=== PATIENT | male | born 1960 | race Caucasian/White ===

== ENCOUNTER 2016-06-19 08:42 | Day surgery (SDC) | payer BC ==
[~2016-06-19 08:42] MED LIST: PROPOFOL 500 MG/50 ML EMU IV ONE
[2016-06-19 11:16] VITALS: BP 133/84; PULSE 56; RESP 20; TEMP 97.2; O2SAT 97
== END 2016-06-19 11:30 | disposition home or self-care (01) ==
LOC: SURG 08:42
PROVIDERS: ATTEND Surgery
DX: Z12.11 Encounter for screening for malignant neoplasm of colon (principal); K57.30 Diverticulosis of large intestine without perforation or abscess without bleeding
CPT/HCPCS: 45378; J2704

== ENCOUNTER 2017-07-12 12:09 | Emergency (ER) | payer BC ==
[2017-07-12] MEDS ORDERED: LIDOCAINE HCL 2% (VISCOUS) 20 ML SOL MT ONE (12:16)
[2017-07-12] MEDS ORDERED: ALUMINUM/MAGNESIUM 30 ML SUS PO ONE (12:16)
[2017-07-12] MEDS ORDERED: LIDOCAINE HCL 2% (VISCOUS) 20 ML SOL ONE (12:25)
[2017-07-12] MEDS ORDERED: ALUMINUM/MAGNESIUM 30 ML SUS ONE (12:25)
[2017-07-12 12:27] LABS: BASOPHILS % (AUTO) 1 % (0-3); EOSINOPHILS % (AUTO) 1 % (0-9); HEMATOCRIT 47 % (39-53); HEMOGLOBIN 16.2 gm/dl (13.5-17.7); LYMPHOCYTES % (AUTO) 29.6 % (10-50); MEAN CORPUSCULAR HEMOGLOBIN 30.4 pg (27.0-32.0); MEAN CORPUSCULAR HGB CONC 34.5 gm/dl (32.0-36.0); MEAN CORPUSCULAR VOLUME 88 fL (80-100); MONOCYTES % (AUTO) 6.4 % (0-12); NEUTROPHILS % (AUTO) 61.7 % (37-80)
[2017-07-12 12:39] VITALS: TEMP 98.4
[2017-07-12 12:44] LABS: BLOOD UREA NITROGEN 16 mg/dl (7-18); CALCIUM 8.3 mg/dl (8.5-10.1); CARBON DIOXIDE 31.9 mEq/L (21-32); CHLORIDE 102 mMol/L (98-107); CREATININE 1.27 mg/dl (0.80-1.30); GLOM FILT RATE 58 mL/min (>60); GLUCOSE 89 mg/dl (74-106); POTASSIUM 3.8 mMol/L (3.5-5.1); SODIUM 141 mMol/L (136-145); TROP I < 0.017 ng/ml (0.000-0.056)
[2017-07-12 13:52] VITALS: RESP 20
[2017-07-12 13:55] VITALS: BP 126/90; PULSE 64; O2SAT 97
== END 2017-07-12 13:30 | disposition home or self-care (01) ==
LOC: ED 12:09
DX: R07.89 Other chest pain (principal); K21.9 Gastro-esophageal reflux disease without esophagitis
CPT/HCPCS: 36415; 71045; 80048; 84484; 85025; 85378; 93005; 99284; A9270-GY